=== PATIENT | female | born 1955 | race Hispanic/Latino ===

== ENCOUNTER 2019-06-02 08:21 | Day surgery (SDC) | payer OTHER, MEDICARE ==
[2019-05-30 11:53] VITALS: BP 155/64
[2019-05-30 12:00] LABS: BASOPHILS % (AUTO) 0.8 % (0.0-5.0); EOSINOPHILS % (AUTO) 1.7 % (0.0-8.0); HEMATOCRIT 40.5 % (36-48); MEAN CORPUSCULAR HEMOGLOBIN 30.6 pg (27.0-33.0); MEAN CORPUSCULAR HGB CONC 33.3 g/dL (32.0-36.0); MEAN CORPUSCULAR VOLUME 91.8 fL (79-99); MONOCYTES % (AUTO) 5.5 % (3.0-13.0); NEUTROPHILS % (AUTO) 63.8 % (40.0-77.0); PLATELET COUNT (AUTO) 216 K/uL (130-400); RED BLOOD CELL COUNT(AUTO) 4.41 MIL/uL (4.00-5.50); RED CELL DISTRIBUTION WIDTH 12.2 % (11.0-15.5); WHITE BLOOD COUNT (AUTO) 5.3 K/uL (4.8-10.8)
[2019-05-30 12:09] LABS: APPEARANCE,URINE Clear (CLEAR); BILIRUBIN,URINE Small (NEGATIVE); COLOR,URINE Dark Yellow (YELLOW); GLUCOSE, URINE (UA) Negative (NEGATIVE); KETONES,URINE Trace mg/dL (NEGATIVE); LEUKOCYTE ESTERASE ,URINE Trace (NEGATIVE); NITRATE,URINE Negative (NEGATIVE); OCCULT BLOOD,URINE Negative (NEGATIVE); PROTEIN,URINE Trace mg/dL (NEGATIVE)
[2019-05-30 12:12] LABS: POTASSIUM 4.1 mmol/L (3.5-5.1)
[2019-05-30 12:57] LABS: BACTERIA,URINE Rare /HPF (None Seen); HYALINE CASTS, URINE 26-50 /LPF (0-1 /LPF); RBC,URINE 0-1 /HPF (0-1); SQUAMOUS EPITHELIAL CELL,UR 0-2 /HPF (0-2); WBC,URINE 0-1 /HPF (0-1)
[2019-05-30 12:59] LABS: INR 0.97 (0.85-1.15); PARTIAL THROMBOPLASTIN TIME 25.5 SEC (26.3-35.5); PROTHROMBIN TIME 10.2 SEC (9.6-11.6)
[~2019-06-02] VITALS: Ht 154.9 cm; Wt 64.0 kg
[2019-06-02] VITALS (9 sets, daily range): BP systolic 131–149; BP diastolic 47–60
[~2019-06-02 08:21] MED LIST: ACET-49 PO; AMLO10TA7 PO; BIVALIRUDIN 250 MG/VIAL IV ONE; DULO60CA64 PO; FENTANYL CITRATE PF 50 MCG/1 ML 2ML VIAL ONE; IOHEXOL 350 MG/ML 100ML INFUS..BTL IV ONE; IOHEXOL-350 50ML VIAL IV ONE; LIDOCAINE HCL 2% 20ML ONE; LINA145C PO; METO-391 PO; MIDAZOLAM HCL 1 MG/ML 2ML VIAL ONE; MIRA25TA PO; NITROGLYCERIN 5 MG/ML 10 ML VIAL IV ONE
[2019-06-02] MEDS ORDERED: ATOR20TA65 PO (09:26)
[2019-06-02] MEDS ORDERED: LEVO5TAB13 PO (09:26)
[2019-06-02] MEDS ORDERED: SODIUM CHLORIDE 0.9% 1000ML 1,000 ML IV SCH (11:06)
[2019-06-02] MEDS ORDERED: GLUCAGON 1MG KIT 1 MG ML IM PRN (11:15)
[2019-06-02] MEDS ORDERED: DEXTROSE 50%-WATER 50 ML DISP.SYRIN IV PRN (11:15)
[2019-06-02] MEDS ORDERED: METOPROLOL TARTRATE 1 MG/ML 5ML VIAL IV PRN (11:15)
[2019-06-02] MEDS ORDERED: NITROGLYCERIN 0.4 MG SL TAB SL PRN (11:15)
[2019-06-02] MEDS ORDERED: ACETAMINOPHEN-CODEINE 300/30MG TAB PO PRN (11:15)
[2019-06-02] MEDS ORDERED: INSULIN HUMULIN R 100 UNIT/ML 3ML SQ SCH (11:30)
--- NOTE | 2019-06-02 12:45 | NUR ---
REPORT RECEIVED REPORT FROM BLAIR BELTRAN TO RESUME CARE OF PATIENT.
--- NOTE | 2019-06-02 16:10 | NUR ---
dc pt dc home via w[place],no distress noted. pt denied any pain or discomforts. pt accompanied by spouse . right groin with dressing dry and intact no bleeding or hematoma noted. vs stable.
== END 2019-06-02 16:10 | disposition home or self-care (01) ==
LOC: DAH 08:21
PROVIDERS: ATTEND Internal Medicine Cardiovascular Disease
DX: R07.9 Chest pain, unspecified (principal); I10 Essential (primary) hypertension; E11.51 Type 2 diabetes mellitus with diabetic peripheral angiopathy without gangrene; E78.5 Hyperlipidemia, unspecified; F17.210 Nicotine dependence, cigarettes, uncomplicated; Z79.899 Other long term (current) drug therapy; Z88.0 Allergy status to penicillin; Z72.89 Other problems related to lifestyle; Z82.49 Family history of ischemic heart disease and other diseases of the circulatory system; Z83.3 Family history of diabetes mellitus; Z88.8 Allergy status to other drugs, medicaments and biological substances
CPT/HCPCS: 36415; 71045; 80048; 81001; 82948 ×2; 85025; 85610; 85730; 93005; 93458; A4215; A4216; A4221; A4222; A4223 ×3; A4606; A4663; C1760; C1894 ×2; J1644; J2250; J3010; J3490 ×2; Q9965; 99156; 99157; J0583; Q9967